=== PATIENT | male | born 1950 | race Caucasian/White ===

== ENCOUNTER 2017-01-18 05:26 | Inpatient (IN) | payer BC ==
[2017-01-18] MEDS ORDERED: ceFAZolin SODIUM 1 GM VIAL IV PRN (06:00)
[2017-01-18] MEDS ORDERED: MORPHINE SULFATE 15 MG TABLET.SA PO PRN (06:00)
[2017-01-18] MEDS: RINGER'S SOLUTION,LACTATED 1,000 ML IV PRN ×2 (06:43→07:10)
[2017-01-18] MEDS ORDERED: FLU VACC QS2017-18(6MOS UP)/PF 60 MCG/0.5 ML SYRINGE IM ONE (07:00)
--- NOTE | 2017-01-18 07:05 | PN ---
Subjective - Date and Time Seen Date: 01/18/17 Time: 06:57 Subjective Narrative: No complaints this am. Denies cough/SOB. Objective - Review of Systems Generalized/Overall Review: Reports: No Symptoms Reported. Denies: Chills, Fever EENTM: Reports: No Symptoms Reported Respiratory: Denies: Cough, Shortness of Breath Cardiac: Denies: Chest Pain, Palpitations Abdominal: Reports: No Symptoms Reported Genitourinary Symptoms: Reports: No Symptoms Reported Musculoskeletal Complaints: Reports: Joint Pain Neurological: Reports: No Symptoms Reported Skin: Reports: No Symptoms Reported Endocrine: Reports: No Symptoms Reported - Exam Constitutional: Present: Alert, Oriented x3, Cooperative, No distress, Obese ENT Exam: Present: hearing grossly normal Neck: Present: supple Respiratory: Present: lungs clear, normal breath sounds, no respiratory distress , no accessory muscle use Cardiovascular/Chest: Present: regular rate, rhythm, no murmur Abdomen: Present: Normal bowel sounds, obese Extremity: Present: no pedal edema. Absent: lower extremity edema Skin Exam: Present: normal color Neurologic: Present: normal mood/affect, oriented x 3 Appearance: Present: appropriate appearance, appropriate insight, neat Eye contact: Present: good eye contact, normal speech Thoughts: Present: normal thought pattern, no apparent hallucination Assessment/Plan - Problems/Diagnosis (1) Left knee pain Problem: Chronic Qualifiers: Chronicity: chronic Qualified Code(s): M25.562 - Pain in left knee; G89.29 - Other chronic pain; G89.29 - Other chronic pain Narrative: here for surgery. procedure and post op per ortho. (2) COPD (chronic obstructive pulmonary disease) Problem: Chronic Qualifiers: COPD type: chronic bronchitis Chronic bronchitis type: simple Qualified Code(s): J41.0 - Simple chronic bronchitis Narrative: stable. lungs are good today. no concerns. if issues will do prn albuterol nebs. would do cornet post-op. (3) TOBIAS (obstructive sleep apnea) Problem: Chronic Narrative: use CPAP hs. (4) HTN (hypertension) Problem: Chronic Qualifiers: Hypertension type: essential hypertension Qualified Code(s): I10 - Essential (primary) hypertension Narrative: stable continue current meds. (5) Discharge planning issues Problem: Acute Narrative: discharge will be pending surgical outcome and patients ability to ambulate on own after surgery.
[2017-01-18] MEDS ORDERED: RINGER'S SOLUTION,LACTATED 1,000 ML IV ONE ×2 (08:00→08:45)
[2017-01-18] MEDS: ROPIVACAINE HCL/PF 100 MG, EPINEPHrine 0.2 MG in NORMAL SALINE 100 ML IJ PRN ×2 (08:07→08:20)
--- NOTE | 2017-01-18 09:13 | POSTOP NO ---
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
[2017-01-18] MEDS ORDERED: DEXTROSE 5%-LACTATED RINGERS 1,000 ML IV PRN (09:14)
[2017-01-18] MEDS ORDERED: ONDANSETRON HCL/PF 2 MG/ML VIAL IV PRN (09:14)
[2017-01-18] MEDS ORDERED: PROMETHAZINE HCL 5 MG in DEXTROSE 5 % IN WATER 50 ML IV PRN ×2 (09:14)
[2017-01-18] MEDS ORDERED: oxyCODONE HCL/ACETAMINOPHEN 1 TAB TABLET PO PRN (09:14)
[2017-01-18] MEDS ORDERED: HYDROmorphone HCL 1 MG/ML DISP.SYRIN IV PRN (09:14)
[2017-01-18] MEDS ORDERED: diphenhydrAMINE HCL 50 MG/ML VIAL IV PRN (09:14)
[2017-01-18] MEDS ORDERED: ZOLPIDEM TARTRATE 5 MG TABLET PO PRN (09:14)
[2017-01-18] MEDS ORDERED: MAGNESIUM HYDROXIDE 30 ML UDC PO PRN (09:14)
[2017-01-18] MEDS ORDERED: ACETAMINOPHEN 500 MG TABLET PO PRN (09:14)
--- NOTE | 2017-01-18 09:25 | OR ---
Operative Report - Dictated Report Narrative: Date: 01/18/2017 Preoperative diagnosis: Left patella arthrosis status post medial and lateral knee arthroplasty with hypertrophic scar tissue. Postoperative diagnosis: Left patella arthrosis status post medial and lateral knee arthroplasty with hypertrophic scar tissue. Procedure: Left patellar arthroplasty with partial synovectomy and excision of scar tissue. Surgeon: John Yang M.D. Commodities Broker: Jose J Harper PA-C Anesthesia: Spinal with regional block and local periarticular joint injection. Complications: None Specimens: Bone for disposal. Estimated blood loss: Minimal. Tourniquet time: 50 Minutes at 325 millimeters of mercury. Retained implants: Depuy 38 millimeter medialized patella button. Indications: Mr. George is a 66-year-old gentleman who presented with a left total knee arthroplasty at an outside hospital and developed patellar pain as he did not have his patella resurfaced on his initial procedure. This patient was followed in my clinic for period of time with significant complaints of left anterior knee pain consistent with arthritic changes. He had failed conservative measures including, but not limited to, activity modification, passage of time, medications, and other conservative measures. Patient wished to proceed with surgical treatment. The risks, benefits, and alternatives were discussed in clinic. The risks of , blood clots, bleeding, infection, nerve/tendon blood vessel/ injury, malposition of components, intraoperative fracture, postoperative limited range of motion, persistent pain, failure of components, and need for additional procedures. Patient wished to proceed consent was obtained after answering all questions. Procedure: After marking the correct extremity on the floor, the patient was taken to the operating room. A timeout was performed. IV antibiotics consisting of Ancef were administered prior to the procedure. A regional followed by spinal anesthetic was induced by anesthesia, per my request, on the operative table with all bony prominences well-padded. Jeffrey catheter was placed, and a bump was placed under the operative side buttock. SCDs and UBALDO hose were utilized on the nonoperative leg. A well-padded tourniquet was applied to the operative thigh. The operative leg was then pre-scrubbed with alcoho,l prepped, and draped in a standard sterile fashion. After exsanguinating the extremity with an Esmarch bandage, the tourniquet was inflated. After marking out the prior anterior knee for standard incision centered over the patella, the skin was incised and dissected down to the joint retinaculum. The joint retinaculum was marked out as well as the horizontal axis of the patella, and a standard medial parapatellar arthrotomy was then made. The most proximal aspect of the quadriceps tendon and the patella tendon insertion were protected from release. There were no nonabsorbable sutures encountered. There was noted hypertrophy of the joint capsule was excised as well as infrapatellar fat pad. There is no signs of infection and no. 1 appearing material. There was benign-appearing synovial fluid but not excessive. The metal and plastic from his prior arthroplasty were unremarkable. His patella was notably worn with significant breakdown of his patella cartilage. The patella was then prepared. The initial thickness was 26 millimeters. This was reamed down to 16 millimeters parallel to the anterior surface of the patella. It was sized out to a size 38 medialized patella button. This was then drilled and trialed. Without any medial restraint the patella tracked appropriately and did not sublux or dislocate. At this point, it was felt these were the appropriate sized implant, and the trial was removed. The standard periarticular joint injection consisting of ropivacaine, Toradol, and epinephrine were injected into the periarticular joint tissues. The bony surfaces were thoroughly irrigated with a pulsatile- suction saline irrigation device. The bony surfaces were then dried in preparation for placement of the implants. The cement was vacuum mixed per the java security architect's instructions. The cement was placed on the dry bony surfaces and posterior aspect of the implants. The patella button was compressed and the extruded cement was removed. At this point anesthesia administered tranexamic acid per protocol intravenously. Once the cement cured, all remaining extruded cement was removed. The knee was placed through a range of motion with the trial insert to ensure appropriate range of motion and stability. Final range of motion was approximately 0 to 130 degrees. The knee was again thoroughly irrigated with pulsatile saline lavage. The remaining periarticular joint injection was injected. The knee was then placed over a triangle and the arthrotomy was closed with interrupted #1 Vicryl after thoroughly irrigating the joint. The deep and subcutaneous tissues were closed with interrupted 0 and 3-0 Vicryl respectively. Skin was closed with a running subcutaneous 3-0 Monocryl and Prineo Dermabond dressing. 4 x 4's, Sof-Rol, and a full leg John wrap were applied. All sponge, needle, blade, and instrument counts were correct prior to closing the wounds. Postoperative condition: The patient was awoken and transferred to the postanesthesia care unit in stable condition. Plan is to be admitted to the inpatient medical/surgical floor postoperatively for 24 hours of IV antibiotics , physical therapy, occupational therapy, and medical comanagement. Patient will be weightbearing as tolerated with range of motion as tolerated. DVT prophylaxis will be with SCDs, UBALDO hose, and pharmacological anticoagulation. Anticipated hospital stay is approximately 2-4 days.
[2017-01-18] MEDS: KETOROLAC TROMETHAMINE 15 MG/ML VIAL IV SCH ×3 (10:11→20:24)
[2017-01-18] MEDS: ceFAZolin SODIUM 1 GM in DEXTROSE 5 % IN WATER 100 ML IV SCH ×6 (11:14→22:23)
[2017-01-18] MEDS ORDERED: CALCIUM CARBONATE 500 MG TAB.CHEW PO PRN (14:53)
[2017-01-18] MEDS: METOPROLOL TARTRATE 25 MG TABLET PO SCH (20:23)
[2017-01-18] MEDS: ASPIRIN 325 MG TABLET.DR PO SCH (20:23)
[2017-01-18] MEDS: MORPHINE SULFATE 15 MG TABLET.SA PO SCH (20:26)
[2017-01-18] MEDS ORDERED: MELATONIN PO SCH (21:00)
[2017-01-18] MEDS ORDERED: SENNOSIDES/DOCUSATE SODIUM 1 TAB TABLET PO SCH (21:00)
[2017-01-18] MEDS ORDERED: MONTELUKAST SODIUM 10 MG TABLET PO SCH (21:00)
[2017-01-18] MEDS ORDERED: PYRIDOXINE HCL PO SCH (21:00)
[2017-01-18] MEDS: MAG HYDROX/ALUMINUM HYD/SIMETH 30 ML UDC PO PRN (22:22)
[2017-01-19] MEDS: KETOROLAC TROMETHAMINE 15 MG/ML VIAL IV SCH ×2 (02:19→08:33)
[2017-01-19 06:22] LABS: Hematocrit 36.6 % (42.0-52.0); Hemoglobin 12.4 gm/dL (13.5-18.0); Mean Cell Volume 97.3 fl (78-100); Mean Corpuscular Hgb Conc 33.9 g/dl (32-36); Mean Platelet Volume 10.8 fl (6.0-9.5); Platelet Count 155 K/mm3 (150-450); Red Blood Count 3.76 M/mm3 (4.7-6.0); Red Cell Distribution Width 12.7 % (11.5-14.0); White Blood Count 6.4 K/mm3 (4.0-10.5)
[2017-01-19 06:30] LABS: BUN/Creatinine Ratio 14.2 (9.0-21.6); Calcium * 9.3 mg/dL (7.9-10.9); Carbon Dioxide 31.5 mmol/L (24-32.6); Estimated Creat Clear 46.5; Potassium 4.5 mmol/L (3.4-4.6)
--- NOTE | 2017-01-19 06:37 | PN ---
Subjective - Date and Time Seen Date: 01/19/17 Time: 06:31 Subjective Narrative: States didn't sleep very last pm, had lots of indigestion, but denies CP/SOB. took tums and maalox without improvement of sx. Feels very bloated this am. No other complaints other than he would like the chaudhry out. States is transferring well and hopes to go home soon. Objective - Review of Systems Generalized/Overall Review: Reports: No Symptoms Reported EENTM: Reports: No Symptoms Reported Respiratory: Reports: No Symptoms Reported Cardiac: Reports: No Symptoms Reported Abdominal: Reports: Other - bloating and indigestion. Genitourinary Symptoms: Reports: No Symptoms Reported Musculoskeletal Complaints: Reports: No Symptoms Reported Neurological: Reports: No Symptoms Reported Skin: Reports: No Symptoms Reported Endocrine: Reports: No Symptoms Reported - Vitals Vitals: Last Vital Signs Temp 36.6 C 01/19/17 02:16 Pulse 76 01/19/17 02:16 Resp 20 01/19/17 02:16 BP 134/72 01/19/17 02:16 Pulse Ox 98 01/19/17 02:16 - Abnormal Lab Findings Abnormal Lab Findings: Abnormal Lab Results 01/19/17 Range/Units 05:40 BUN 25 H (6-23) mg/dL Creatinine 1.76 H (0.4-1.4) mg/dL Est GFR (Non-Af Amer) 42 L (60-130) mL/min Random Glucose 126 H (70-110) mg/dL - Exam Constitutional: Present: Alert, Oriented x3, Cooperative, No distress ENT Exam: Present: hearing grossly normal Respiratory: Present: lungs clear, normal breath sounds, no respiratory distress , no accessory muscle use Cardiovascular/Chest: Present: regular rate, rhythm, no murmur Abdomen: Present: Normal bowel sounds, tender, distended. Absent: guarding, rigidity Extremity: Present: no calf tenderness, other - scd's khadar LE. Skin Exam: Present: normal color Neurologic: Present: normal mood/affect, oriented x 3 Appearance: Present: appropriate appearance, appropriate insight Eye contact: Present: cooperative, good eye contact, normal speech Thoughts: Present: normal thought pattern, no apparent hallucination Cauti Physician Documentation - Urinary Catheter Management Urethral (Chaudhry) Urethral Indwelling: Yes Reason for Continuing Indwelling Catheter: Surgical Procedure Date of Insertion: 01/18/17 Time of Insertion: 07:00 Assessment/Plan - Problems/Diagnosis (1) Left knee pain Problem: Chronic Qualifiers: Chronicity: chronic Qualified Code(s): M25.562 - Pain in left knee; G89.29 - Other chronic pain; G89.29 - Other chronic pain Narrative: s/p surgery. appears to be doing well, post op care and rehab per ortho. (2) COPD (chronic obstructive pulmonary disease) Problem: Chronic Qualifiers: COPD type: chronic bronchitis Chronic bronchitis type: simple Qualified Code(s): J41.0 - Simple chronic bronchitis Narrative: appears stable, continue nebs prn. ambulate. (3) TOBIAS (obstructive sleep apnea) Problem: Chronic Narrative: continue CPAP. (4) HTN (hypertension) Problem: Chronic Qualifiers: Hypertension type: essential hypertension Qualified Code(s): I10 - Essential (primary) hypertension Narrative: BP'S slightly elevated. follow for now. no changes at this time. (5) Discharge planning issues Problem: Acute Narrative: discharge per ortho. (6) GERD (gastroesophageal reflux disease) Problem: Acute Qualifiers: Esophagitis presence: with esophagitis Qualified Code(s): K21.0 - Gastro- esophageal reflux disease with esophagitis Narrative: continue protonix, tums and maalox. ambulation should help relieve some gas and therefore pressure in abdomen contributing to GERD.
[2017-01-19] MEDS: MAG HYDROX/ALUMINUM HYD/SIMETH 30 ML UDC PO PRN (06:38)
[2017-01-19] MEDS ORDERED: PANTOPRAZOLE SODIUM 40 MG TABLET.EC PO SCH (07:00)
[2017-01-19] MEDS: METOPROLOL TARTRATE 25 MG TABLET PO SCH (08:33)
[2017-01-19] MEDS: ASPIRIN 325 MG TABLET.DR PO SCH (08:33)
[2017-01-19] MEDS: MORPHINE SULFATE 15 MG TABLET.SA PO SCH (08:37)
[2017-01-19] MEDS ORDERED: LISINOPRIL 20 MG TABLET PO SCH (09:00)
[2017-01-19] MEDS ORDERED: LORATADINE 10 MG TABLET PO SCH (09:00)
[2017-01-19] MEDS ORDERED: CLOPIDOGREL BISULFATE 75 MG TABLET PO SCH (09:00)
[2017-01-19] MEDS ORDERED: ESCITALOPRAM OXALATE 10 MG TAB PO SCH (09:00)
[2017-01-19 11:03] VITALS: BP 129/74
--- NOTE | 2017-01-19 13:17 | DS ---
(1) Status post left partial knee replacement Problem: Acute (2) GERD (gastroesophageal reflux disease) Problem: Chronic Qualifiers: Esophagitis presence: with esophagitis Qualified Code(s): K21.0 - Gastro- esophageal reflux disease with esophagitis (3) COPD (chronic obstructive pulmonary disease) Problem: Chronic Qualifiers: COPD type: chronic bronchitis Chronic bronchitis type: simple Qualified Code(s): J41.0 - Simple chronic bronchitis (4) HTN (hypertension) Problem: Chronic Qualifiers: Hypertension type: essential hypertension Qualified Code(s): I10 - Essential (primary) hypertension (5) Left knee pain Problem: Chronic Qualifiers: Chronicity: chronic Qualified Code(s): M25.562 - Pain in left knee; G89.29 - Other chronic pain; G89.29 - Other chronic pain (6) TOBIAS (obstructive sleep apnea) Problem: Chronic Description of Stay: Mr. George was admitted to the floor after undergoing left patella arthroplasty and excision of scar tissue status post left total knee. Tolerated this well. Was admitted to the floor postoperatively for 24 hours of IV antibiotics, pain control, medical comanagement, and occupational and physical therapy. OT and PT were consulted to assist with activities of daily living and ambulation. Was made weightbearing as tolerated with range of motion as tolerated. Pain was initially controlled with IV regimen. This was transitioned to oral once tolerating a by mouth intake. Was resumed on home diet and medications. Had a Jeffrey catheter inserted and the operating room which was discontinued on postoperative day 1. Aspirin SCD and UBALDO hose were utilized for DVT prophylaxis. Vital signs remained stable to the hospital course. Labs were obtained which showed a final hemoglobin of 12.4 grams. BMP was reviewed and was stable. Physical examination throughout the hospital course showed an extremity that had sensation that was intact to light touch, palpable pulses, he did have some drainage from his wound which was Dermabond and resolved, motor intact to the toes, ankle, and knee. Knee range of motion was approximately 75 degrees to 5 degrees. Once an oral pain regimen was tolerated and physical therapy goals were met, it was felt that they were stable for discharge to home. Instructions: Continue with weightbearing as tolerated and range of motion as tolerated. It is okay to shower and get the wound wet as long as there is no drainage from the wound. Do not bathe or soak the wound. If there is any drainage from the wound keep the wound clean and dry and cover with dry gauze and tape. Change every 2-3 days as needed if there is any drainage. Cover wound while showering if there is any drainage. Continue with physical therapy. Resume home diet. Report any fever over 101.5 Fahrenheit, uncontrolled pain, increased drainage, foul odor of drainage, new or increased calf pain or shortness of breath, or any other significant complaints. A 325mg BID aspirin will be contiued. Continue with UBALDO hose on the operative extremity until instructed otherwise. No driving until instructed otherwise. Follow up in approximately 10-14 days. Procedures Performed: see notes below List Procedures: Left patellar resurfacing partial synovectomy with excision of scar tissue Discharge Disposition: Home self care Disposition: Home self-care Condition: Good Discharge Activity: Activity as tolerated, Weight bearing Discharge Diet: General/regular food Care Home Therapy: Physicial Therapy Referrals: Keyon Valle MD [Primary Care Provider] - Additional Patient Instructions (free text): Out patient Physical Therapy on WednesdayJan 22 at 3:15 at [facility] Rehab department. Follow-up in the office with Dr. Yang on Wednesday02/02/17 at 9:45am. Prescriptions (Any new or edited meds): Morphine Sulfate [Ms Contin] 15 mg PO Q12H #20 tablet.sa oxyCODONE HCL/ACETAMINOPHEN [Percocet 5 MG/325 MG] 2 tab PO Q4H PRN #90 tablet PRN Reason: Moderate Pain Complete Home Medications List: Complete Home Medication List: Escitalopram Oxalate [Lexapro] 20 mg PO DAILY 08/23/12 Lansoprazole [Prevacid] 30 mg PO DAILY 08/23/12 Clopidogrel Bisulfate [Plavix] 75 mg PO DAILY 10/29/14 Cetirizine HCl [Zyrtec] 10 mg PO DAILY 12/24/16 Lisinopril [Prinivil] 20 mg PO DAILY 12/24/16 Melatonin/Pyridoxine HCl (B6) [Melatonin 10 mg Tablet] 1 each PO HS 12/24/16 Metoprolol Tartrate [Lopressor] 25 mg PO BID 12/24/16 Montelukast Sodium [Singulair] 10 mg PO HS 12/24/16 Aspirin [Aspirin Enteric Coated] 325 mg PO BID tablet. 01/19/17 Morphine Sulfate [Ms Contin] 15 mg PO Q12H #20 tablet. 01/19/17 Sennosides/Docusate Sodium [Senokot-S] 2 tab PO HS tablet 01/19/17 oxyCODONE HCL/ACETAMINOPHEN [Percocet 5 MG/325 MG] 2 tab PO Q4H PRN #90 tablet 01/19/17 Amb Orders for Discharge: PT Evaluation and Treatment Facility: [facility], Location: Rehabilitation Services
== END 2017-01-19 15:01 | disposition home or self-care (01) | DRG 465 ==
LOC: MS 05:26
PROVIDERS: ADMIT Orthopaedic Surgery; ATTEND Orthopaedic Surgery
PROC: 0SUD09C Supplement Left Knee Joint with Liner, Patellar Surface, Open Approach (ICD-10-PCS; 2017-01-18)
PROC: 0SPD0JC Removal of Synthetic Substitute from Left Knee Joint, Patellar Surface, Open Approach (ICD-10-PCS; principal; 2017-01-18 07:30)
DX: M17.12 Unilateral primary osteoarthritis, left knee (principal); I10 Essential (primary) hypertension; K21.0 Gastro-esophageal reflux disease with esophagitis; J41.0 Simple chronic bronchitis; E78.5 Hyperlipidemia, unspecified; Z23 Encounter for immunization
CPT/HCPCS: 27486; 36415; 73560; 80048; 85027; 90686; 94660; 97110; 97116; 97161; 97165; 97535; G0008; J2405

== ENCOUNTER 2019-03-27 06:23 | Inpatient (IN) ==
[~2019-03-27 06:23] MED LIST: MORPHINE SULFATE 15 MG TABLET.SA PO PRN; ROPIVACAINE HCL/PF 100 MG, EPINEPHrine 0.2 MG, KETOROLAC TROMETHAMINE 30 MG in NORMAL S... IJ PRN; TRANEXAMIC ACID 1,000 MG in NORMAL SALINE 100 ML IV PRN; ceFAZolin SODIUM 1 GM VIAL IV PRN
[2019-03-27] MEDS ORDERED: ceFAZolin SODIUM 1 GM VIAL ONE (06:28)
[2019-03-27] MEDS ORDERED: ISOPROPYL ALCOHOL 480 APPL BTL MC ONE (06:28)
[2019-03-27] MEDS: RINGER'S SOLUTION,LACTATED 1,000 ML IV PRN ×3 (07:16→08:55)
--- NOTE | 2019-03-27 07:25 | ANES ---
Anesthesia Pre Procedure Eval Vitals/Labs: Last Vital Signs Temp 36.3 C 03/27/19 06:27 Pulse 75 03/27/19 06:27 Resp 18 03/27/19 06:27 BP 121/76 03/27/19 06:27 Pulse Ox 96 03/27/19 06:27 HOME MEDICATIONS Cetirizine HCl [Zyrtec] 10 mg PO DAILY PRN 12/24/16 [Last Taken Unknown] Melatonin/Pyridoxine HCl (B6) [Melatonin Tr 10 mg Tablet] 10 mg PO HS 12/24/16 [Last Taken Unknown] aspirin 81 mg tablet,delayed release 81 mg PO DAILY 02/02/18 [Last Taken Unknown] Durable Medical Equipment See Dose Instructions .ROUTE .MEDSUPPLY #1 ea 04/25/18 [Last Taken Unknown] clopidogrel 75 mg tablet 75 mg PO DAILY #30 tab 09/07/18 [Last Taken 03/22/19] lisinopril 20 mg tablet 20 mg PO DAILY #30 tab 09/07/18 [Last Taken 03/27/19] cyclobenzaprine 10 mg tablet 10 mg PO TID PRN #90 tab 09/28/18 [Last Taken Unknown] metoprolol tartrate 25 mg tablet 25 mg PO BID #60 tab 11/17/18 [Last Taken 03/27/19] lansoprazole 30 mg capsule,delayed release 30 mg PO DAILY #30 cap 03/21/19 [Last Taken Unknown] Escitalopram Oxalate [Lexapro] 1 tab PO DAILY 03/23/19 [Last Taken Unknown] Allergies/Adverse Reactions: Allergies Allergy/AdvReac Type Severity Reaction Status Date / Time albuterol AdvReac Intermediate SOB Verified 03/27/19 06:38 atorvastatin [From Lipitor] AdvReac Mild SEVERE Verified 03/27/19 06:38 MYALGIAS, ARTHRALGIAS prednisone AdvReac Mild RED FACE, Verified 03/27/19 06:38 AGGRESSIVE - Planned Procedure Planned Procedure: Right Arthroplasty Total Knee, Revision Medication List Reviewed:: Yes Allergies Verified: Yes Medical History (Last Reviewed 03/27/19 @ 07:16 by Jt Krueger CRNA) Hyperlipidemia LDL goal <100 (Chronic) Onset Date: Unknown Rectal abscess (Acute) Onset Date: Unknown Back pain (Chronic) Onset Date: Unknown AAA (abdominal aortic aneurysm) Onset Date: ~10/31/14 Tobacco abuse Onset Date: ~05/15/13 Vitamin D deficiency Onset Date: ~05/15/13 Allergic rhinitis Onset Date: ~05/27/16 Anxiety Onset Date: Unknown Blindness, legal Onset Date: Unknown right CAD (coronary artery disease) Onset Date: Unknown COPD (chronic obstructive pulmonary disease) Onset Date: ~01/05/13 Depression Onset Date: Unknown Essential hypertension Onset Date: ~12/2012 GERD (gastroesophageal reflux disease) Onset Date: ~01/05/13 Hypogonadism Onset Date: Unknown Knee pain Onset Date: ~11/11/12 Low back pain Onset Date: ~10/31/14 Lumbar disc disease Onset Date: ~10/31/14 Morbid obesity Onset Date: Unknown Myocardial infarction Onset Date: ~2014 Obstructive sleep apnea Onset Date: ~05/15/13 Osteoarthritis Onset Date: ~05/26/12 Restless legs Onset Date: Unknown Bronchitis Onset Date: Unknown Pneumonia Onset Date: ~12/2016 Sinusitis Onset Date: Unknown Surgical History (Last Reviewed 03/27/19 @ 07:16 by Jt Krueger CRNA) H/O heart artery stent Onset Date: ~2014 H/O sinus surgery Onset Date: Unknown H/O umbilical hernia repair Onset Date: ~02/15/09 History of colonoscopy Onset Date: ~02/15/09 History of knee replacement Onset Date: Unknown bilateral Dr. Ortiz and Re-surface by Dr. Yang on left knee History of uvulopalatopharyngoplasty Onset Date: Unknown Hx of cardiac cath Onset Date: ~2014 Family History (Last Reviewed 03/27/19 @ 07:16 by Jt Krueger CRNA) Brother Alive and well Sister Kidney disease - Family Anesthesia History Family History:: no untoward family reactions to anesthesia, no familial bleeding tendencies, no family history of clotting disorders, no family history of premature - Airway/Neck/Teeth Denture Type: Partial upper Mallampatti Score: 3 Thyromental (T-M) distance: > 6 cm Mandibulo Hyoid distance: > 3 cm - Respiratory Respiratory History: CPAP/BiPAP home use Respiratory Physical: lungs clear Smoking Status: Current every day smoker Discussed smoking cessation including day of surgery: Yes Sleep Apnea currently treated: Yes - Cardiovascular Tolerate Activity: Poor Heart Sounds: S1 & S2, Regular - Gastrointestinal NPO since: mn - Anesthesia Assessment and Plan ASA Class: PS, IV Anesthesia Type Plan: Block - Right ultrasound guided adductor canal nerve block for postop analgesia, Spinal
[2019-03-27] MEDS ORDERED: LIDOCAINE HCL 20 ML VIAL ONE (07:28)
[2019-03-27] MEDS ORDERED: fentaNYL CITRATE/PF 50 MCG/ML AMPUL ONE (07:29)
[2019-03-27] MEDS ORDERED: BUPIVACAINE HCL/EPINEPHRINE 50 ML VIAL ONE (07:29)
[2019-03-27] MEDS ORDERED: PROPOFOL VIAL IV ONE ×2 (07:29→10:12)
[2019-03-27] MEDS ORDERED: ONDANSETRON HCL/PF 2 MG/ML VIAL ONE (07:29)
[2019-03-27] MEDS ORDERED: DEXTROSE 5%-LACTATED RINGERS 1,000 ML IV PRN (10:56)
[2019-03-27] MEDS ORDERED: diphenhydrAMINE HCL 50 MG/ML VIAL IV PRN (10:56)
[2019-03-27] MEDS ORDERED: ZOLPIDEM TARTRATE 5 MG TABLET PO PRN (10:56)
[2019-03-27] MEDS ORDERED: ACETAMINOPHEN 500 MG TABLET PO PRN (10:56)
[2019-03-27] MEDS ORDERED: ONDANSETRON HCL/PF 2 MG/ML VIAL IV PRN (10:56)
[2019-03-27] MEDS ORDERED: MORPHINE SULFATE 2 MG/ML DISP.SYRIN IV PRN (10:56)
[2019-03-27] MEDS ORDERED: MAGNESIUM HYDROXIDE 30 ML UDC PO PRN (10:56)
--- NOTE | 2019-03-27 10:56 | OR ---
Operative Report - Dictated Report Narrative: DATE OF PROCEDURE: 03/27/2019 PHYSICIAN: John Yang MD [employer] PROFESSOR: Franck Noriega MD (provided an educated set of skilled hands that consisted with transfer, positioning, prepping, draping, traction, manipulation, irrigation, placement of implants, placement of instruments, closure of wounds, application of dressings, all of which could not be performed by the available surgical crew). 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 ANESTHESIA: Spinal plus regional plus periarticular local. ESTIMATED BLOOD LOSS: Minimal TOURNIQUET TIME: 124 minutes at 300 mmHg. SPECIMENS: Implants for disposal, tissue for acute inflammation, culture x1. COMPLICATIONS: None. RETAINED IMPLANTS: DePuy Attune revision CRS size 8 right femur cemented, 8 mm posterior medial, and posterior lateral augments, attune revision press-fit stem 14 x 60 mm, attune revision porocoat fully coated femoral sleeve 30 mm, size 8 revision tibial baseplate rotating platform, revision tibial sleeve Porocoat fully coated 29 mm, revision press-fit stem 14 mm x 60 mm, CRS revision rotating platform insert size 8 x 10 mm crosslinked polyethylene. INDICATIONS FOR PROCEDURE: Mr. George he is a 68-year-old gentleman who underwent a cruciate retaining press-fit right total knee arthroplasty in the past at an outside facility. He had noted pain and radiographs concerning for possible loosening. He had an aspirate, which was negative for infection. Options for treatment were discussed including bracing, observation, and surgical revision. He wished to proceed with revision. The risks, benefits, and alternatives were discussed in clinic. The risk of , blood clots, bleeding, infection, nerve/tendon/blood vessel injury, malposition of implants, persistent pain, failure of implants, loosening, stiffness, need for additional procedures, and she wished to proceed. Consent was obtained in the clinic. PROCEDURE: After marking the correct extremity in the preoperative holding area, the patient was taken to the operating room. A timeout was performed. IV antibiotics consisting of Ancef was administered prior to procedure. A regional followed by spinal anesthetic was induced at my request by anesthesia. A Jeffrey catheter was placed and a bump was placed under the left buttock. A well-padded tourniquet was applied to the left thigh. Right leg was then prepped and draped in standard sterile fashion. His preop range of motion was approximately 0 to 130 degrees. After prepping and draping the leg in standard sterile fashion, exsanguinating the extremity and inflating the tourniquet to 300 mmHg, the previous anterior incision was excised over a length of 20 cm. Sharp dissection was carried through the skin. There were retained nonabsorbable sutures which were removed. The medial retinaculum was marked out and a paramedial arthrotomy was made. There was notable effusion, but no gross signs of purulence or infectious appearing tissues. A partial synovectomy was performed. The scar tissue was excised. The gutters were cleaned. Due to the press-fit monoblock tibia, the pegs on the tibia were cut in order to remove the baseplate and poly-as 1 after using osteotomes to free the bone implant interface. The pegs were then removed separately. The knee was hyperflexed and attention was turned to the femur. A series of osteotomes were utilized in order to disengage the bone implant interface, removing the femoral component. Again, this was a cruciate retaining implant. We then proceeded to prepare the tibia. The entry reamer up to a size 14 tibial reamer was utilized in order to repair the tibial canal. An entry reamer for the implant as well as a 29mm broach was utilized which gave good stability with good fill of the proximal tibial metaphysis. The proximal tibia was then cleaned and cut in order to provide a flat surface. The trial tray size 8 was then impacted with the trial sleeve and this was secured with a punch. Once it was felt that we prepared the tibia, we turned our attention to the femur. The patella was noted to be a metal-backed patella without any signs of excessive polyethylene wear. It was elected to keep the previous patella button in place. A series of reamers were utilized in order to open up the femoral canal up to a size 14. The femoral sleeve with broach was utilized up to a size 30mm. A clean-up distal cut was made, followed by the 3-in-1 cutting block, which was placed under tension in both flexion and extension in order to make sure that we had a symmetrical box. This was pinned in slight external rotation. Clean-up cuts were then made for augment, 8 mm posterior medial and lateral. The trial components were assembled and impacted for trial. A series of inserts were utilized up to a size 10, which gave good stability in flexion and was able to reach maximal extension without hyperextension, stable to varus and valgus stressing as well as drawer. The patella tracked appropriately and overall, it was felt these were the appropriate implants. The implants were removed. The tissue was thoroughly irrigated with pulsatile saline irrigation. Prior to this, the tissue was sent to pathology for acute inflammation, was noted to have less than 5 neutrophils per high-powered field, and culture was also obtained and sent to pathology. Once the bone was thoroughly irrigated and dried, a periarticular joint injection of ropivacaine, Toradol, and epinephrine was placed. The cement was vacuum mixed per case management manager's instructions. The implants were assembled on the back table, and cement was placed on the appropriate surfaces, avoiding any cement on the ingrown surface or the stems, and the implants were then impacted. Once the cement was fully cured, the extruded cement was removed. The final polyethylene insert was placed. The kn ee was again placed through range of motion and was able to reach full extension, flexion 130 degrees with appropriate tracking of the patella, and no instability. A drain was placed exiting superolaterally. The tourniquet was deflated. Hemostasis was obtained. Capsule was closed with interrupted #1 Vicryl. The deep tissues with 0 Vicryl, subcutaneous tissue with 3-0 Vicryl and 3-0 Monocryl, and the skin with stuart. Xeroform, 4 x 4s, Sof-Rol and a full leg John was applied and the patient was awoken and transferred to postanesthesia care unit in stable condition. All sponge, needle, and instrument counts were correct prior to closing the wounds.
[2019-03-27] MEDS ORDERED: LORATADINE 10 MG TABLET PO PRN (10:59)
--- NOTE | 2019-03-27 11:26 | ANES ---
Post Anesthesia Discharge - Transfer of Care Transfer of Care handoff given to nurse: Yes - Discharge from PACU Discharge from PACU when meets criteria: Yes - Discharge to ASU Discharge to ASU-no complications/pt stable: Yes
--- NOTE | 2019-03-27 11:33 | ANES ---
Anesthesia Procedure Note Procedure Note: ANESTHESIA PROCEDURE NOTE Date of Procedure: 03/27/2019 Time of procedure: 734. Performed by: Jt Krueger CRNA Cistern Room Operator: None. Preprocedure diagnosis: History of right total knee arthroplasty. Post procedure diagnosis: Same. Procedure: Right ultrasound guided adductor canal block for postoperative analgesia. Indications: The patient is a 68-year-old male, requesting right ultrasound- guided abductor canal block for postoperative analgesia related to revision right total knee arthroplasty. Findings: See below. Details of the procedure: The tissue over the intended target site was cleansed with ChloraPrepand draped in a sterile fashion. 2 ml Lidocaine 1 % was infiltrated to the skin and subcutaneous tissue at the intended target site. Under sterile technique and ultrasound guidance a 20-gauge block needle was inserted through the right sartorius muscle to the saphenous nerve just anterior and medial to the superficial femoral artery and vein. 15 mL's of 0.5% bupivacaine was injected after negative aspiration for blood. Needle tip and spread of local anesthetic surrounding the saphenous nerve was observed throughout the injection with real time ultrasound visualization. The needle was then removed intact. No complications were noted. The images were retained in the Hospital medical database. EBL: Minimal. Fluids: N/A. Specimen: N/A. Post procedure condition: The patient tolerated the procedure well. No complications were noted. Thank you for this consultation. tJ Krueger CRNA
[2019-03-27] MEDS: KETOROLAC TROMETHAMINE 15 MG/ML VIAL IV SCH ×2 (11:38→17:43)
[2019-03-27] MEDS: oxyCODONE HCL/ACETAMINOPHEN 1 TAB TABLET PO PRN ×3 (12:47→21:00)
[2019-03-27] MEDS: ceFAZolin SODIUM 1 GM in DEXTROSE 5 % IN WATER 100 ML IV SCH ×4 (12:48→19:06)
--- NOTE | 2019-03-27 14:54 | ANES ---
Post Anesthesia Assessment - Vital Signs Vitals: Last Vital Signs Temp 36.4 C 03/27/19 12:11 Pulse 75 03/27/19 13:11 Resp 16 03/27/19 13:11 BP 125/75 03/27/19 13:11 Pulse Ox 100 03/27/19 13:11 Airway Patency: Normal - Mental Status Level Of Consciousness: Awake - Pain Level Pain Score: 0 - N/V Assessment Nausea/Vomiting Presence: None Dehydration:: No
[2019-03-27] MEDS ORDERED: SENNOSIDES/DOCUSATE SODIUM 1 TAB TABLET PO SCH (21:00)
[2019-03-27] MEDS ORDERED: PYRIDOXINE HCL PO SCH (21:00)
[2019-03-27] MEDS: MORPHINE SULFATE 15 MG TABLET.SA PO SCH (21:00)
[2019-03-27] MEDS ORDERED: MELATONIN PO SCH (21:00)
[2019-03-27] MEDS: METOPROLOL TARTRATE 25 MG TABLET PO SCH (21:01)
[2019-03-27] MEDS: MAG HYDROX/ALUMINUM HYD/SIMETH 30 ML UDC PO PRN (22:07)
[2019-03-28] MEDS: KETOROLAC TROMETHAMINE 15 MG/ML VIAL IV SCH ×2 (00:11→05:42)
[2019-03-28] MEDS: ceFAZolin SODIUM 1 GM in DEXTROSE 5 % IN WATER 100 ML IV SCH ×2 (00:12)
[2019-03-28] MEDS: MAG HYDROX/ALUMINUM HYD/SIMETH 30 ML UDC PO PRN ×2 (03:56→10:05)
[2019-03-28 05:33] LABS: Hematocrit 36.5 % (42.0-52.0); Hemoglobin 11.7 gm/dL (13.5-18.0); Mean Cell Volume 100.8 fl (78-100); Mean Corpuscular Hemoglobin 32.3 pg (27-31); Mean Corpuscular Hgb Conc 32.1 g/dl (32-36); Mean Platelet Volume 9.8 fl (8-11.3); Platelet Count 196 K/mm3 (150-450); Red Blood Count 3.62 M/mm3 (4.7-6.0); White Blood Count 6.2 K/mm3 (4.0-10.5)
[2019-03-28 05:39] LABS: Anion Gap 12.8 mmol/L (6.8-13.8); Calcium * 8.4 mg/dL (7.9-10.9); Carbon Dioxide 29.7 mmol/L (24-32.6); Estimated Creat Clear 38.5; Potassium 4.5 mmol/L (3.4-4.6)
[2019-03-28] MEDS ORDERED: PANTOPRAZOLE SODIUM 40 MG TABLET.EC PO SCH (07:00)
[2019-03-28] MEDS: METOPROLOL TARTRATE 25 MG TABLET PO SCH (08:23)
[2019-03-28] MEDS: MORPHINE SULFATE 15 MG TABLET.SA PO SCH (08:23)
[2019-03-28] MEDS ORDERED: LISINOPRIL 20 MG TABLET PO SCH (09:00)
[2019-03-28] MEDS ORDERED: ESCITALOPRAM OXALATE 10 MG TAB PO SCH (09:00)
[2019-03-28] MEDS ORDERED: ENOXAPARIN SODIUM 40 MG/0.4 ML SYRG SC SCH (09:56)
[2019-03-28] MEDS: oxyCODONE HCL/ACETAMINOPHEN 1 TAB TABLET PO PRN (12:23)
--- NOTE | 2019-03-28 15:37 | DS ---
(1) Status post revision of total replacement of right knee Problem: Acute (2) Acute blood loss anemia Problem: Acute (3) COPD (chronic obstructive pulmonary disease) Problem: Chronic Qualifiers: (4) GERD (gastroesophageal reflux disease) Problem: Chronic Qualifiers: (5) HTN (hypertension) Problem: Chronic Qualifiers: (6) Hyperlipidemia LDL goal <100 Problem: Chronic (7) TOBIAS (obstructive sleep apnea) Problem: Chronic Date of Discharge:: 03/28/19 Hospital Course: Mr. George was admitted to the floor after undergoing revision right total knee arthroplasty. Tolerated this well. Was admitted to the floor postoperatively for 24 hours of IV antibiotics, pain control, medical comanagement, and occupational and physical therapy. OT and PT were consulted to assist with activities of daily living and ambulation. Was made weightbearing as tolerated with range of motion as tolerated. Pain was initially controlled with IV regimen. This was transitioned to oral once tolerating a by mouth intake. Was resumed on home diet and medications. Had a Jeffrey catheter inserted and the operating room which was discontinued on postoperative day 1. A drain was placed intraoperatively into the knee which was discontinued on postoperative day 1. Lovenox SCD and UBALDO hose were utilized for DVT prophylaxis. Vital signs remained stable to the hospital course. Serial labs were obtained which showed a final hemoglobin of 11.7 down from 14.0 g preoperatively. He was asymptomatic regarding this and will observe clinically. BMP was reviewed and was stable. Physical examination throughout the hospital course showed an extremity that had sensation that was intact to light touch, palpable pulses, a benign wound, motor intact to the toes, ankle, and knee. Knee range of motion was approximately 5 degrees to 70 degrees. Once an oral pain regimen was tolerated and physical therapy goals were met, it was felt that they were stable for discharge to home. Instructions: Continue with weightbearing as tolerated and range of motion as tolerated. Keep wound clean and dry. Keep wound covered with clean dry gauze with tape. Change every 2-3 days as needed. Continue with physical therapy. Resume home diet. Report any fever over 101.5 Fahrenheit, uncontrolled pain, increased drainage, foul odor of drainage, new or increased calf pain or shortness of breath, or any other significant complaints. A 325mg dialy aspirin will be started after finishing anticoagulation if not allergic. Continue with UBALDO hose on the operative extremity until instructed otherwise. No driving until instructed otherwise. Follow up in approximately 10-14 days. Procedures Performed: see notes below List Procedures: Revision right total knee arthroplasty Results and Findings: Pending Mircobiology Results 03/27/19 10:29 Knee - Right Miscellaneous Culture - Preliminary No Growth Lab Pending Results 03/28/19 05:15: WBC 6.2, RBC 3.62 L, Hgb 11.7 L, Hct 36.5 L, MCV 100.8 H, MCH 32.3 H, MCHC 32.1, RDW 13.0, Plt Count 196, MPV 9.8 03/28/19 05:15: Sodium 139, Plasma Sodium 140, Potassium 4.5, Chloride 101, Carbon Dioxide 29.7, Anion Gap 12.8, BUN 24 H, Creatinine 2.00 H D, Est GFR (Non-Af Amer) 36 L D, BUN/Creatinine Ratio 12.0, Random Glucose 138 H, Calcium 8.4 Discharge Location: Home Disposition: Home self-care Condition: Good Discharge Activity: Activity as tolerated, Weight bearing, Other - With wheeled walker Discharge Diet: Low salt, Low fat/chol Referrals: Keyon Valle MD [Staff Physician] - Additional Patient Instructions (free text): Follow up Physical Therapy appointment on WednesdayMarch 29 at 11:00am. Follow up Orthopedic office appointment on WednesdayApril 18 at 9:45am. Prescriptions (Any new or edited meds): Enoxaparin Sodium [Lovenox] 40 mg SC Q24H #7 disp.syrin Transmission Status: P[place] Morphine Sulfate [Ms Contin] 15 mg PO Q12H #20 tablet.sa Transmission Status: Sent [place] oxyCODONE HCL/ACETAMINOPHEN [Percocet 5 MG/325 MG] 2 tab PO Q4H PRN #56 tab PRN Reason: Moderate Pain (Pain Scale 4-6) Transmission Status: Sent [place] Sennosides/Docusate Sodium [Senokot-S] 2 tab PO HS #30 tab Transmission Status: Pending [place] Complete Home Medications List: Complete Home Medication List: Cetirizine HCl [Zyrtec] 10 mg PO DAILY PRN 12/24/16 Melatonin/Pyridoxine HCl (B6) [Melatonin Tr 10 mg Tablet] 10 mg PO HS 12/24/16 aspirin 81 mg tablet,delayed release 81 mg PO DAILY 02/02/18 Durable Medical Equipment See Dose Instructions .ROUTE .MEDSUPPLY #1 ea 04/25/18 clopidogrel 75 mg tablet 75 mg PO DAILY #30 tab 09/07/18 lisinopril 20 mg tablet 20 mg PO DAILY #30 tab 09/07/18 cyclobenzaprine 10 mg tablet 10 mg PO TID PRN #90 tab 09/28/18 metoprolol tartrate 25 mg tablet 25 mg PO BID #60 tab 11/17/18 lansoprazole 30 mg capsule,delayed release 30 mg PO DAILY #30 cap 03/21/19 Escitalopram Oxalate [Lexapro] 1 tab PO DAILY 03/23/19 Enoxaparin Sodium [Lovenox] 40 mg SC Q24H #7 disp.syrin 03/28/19 Morphine Sulfate [Ms Contin] 15 mg PO Q12H #20 tablet.sa 03/28/19 Sennosides/Docusate Sodium [Senokot-S] 2 tab PO HS #30 tab 03/28/19 oxyCODONE HCL/ACETAMINOPHEN [Percocet 5 MG/325 MG] 2 tab PO Q4H PRN #56 tab 03/28/19 Amb Orders for Discharge: PT Evaluation and Treatment* Facility: [facility], Location: Rehabilitation Services
[2019-03-28 16:35] VITALS: BP 122/68
== END 2019-03-28 16:35 | disposition home or self-care (01) | DRG 467 ==
LOC: MS 06:23
PROVIDERS: ADMIT Orthopaedic Surgery; ATTEND Orthopaedic Surgery
CPT/HCPCS: 36415; 73560; 80048; 85027; 87070; 87075; 88305; 88331; 94660; 97110; 97116; 97161; 97165; 97530; 97535; J2405